=== PATIENT | male | born 1970 | race Two or more races ===

== ENCOUNTER 2025-09-01 18:45 | Emergency (ER) | payer OTHER ==
[~2025-09-01] VITALS: Ht 188 cm; Wt 109.8 kg
[2025-09-01] MEDS ORDERED: AVAPRO300 MG (19:18)
[2025-09-01] MEDS ORDERED: CARVEDILOL25 MG (19:19)
[2025-09-01] MEDS ORDERED: KETOROLAC TROMETHAMINE 30 MG VIAL IM STA (19:33)
[2025-09-01] MEDS ORDERED: DEXAMETHASONE SODIUM PHOSPHATE 4 MG/ML VIAL IM STA (19:33)
[2025-09-01] MEDS ORDERED: ORPHENADRINE CITRATE 30 MG/ML AMPUL IM STA (19:34)
[2025-09-01] MEDS ORDERED: KETOROLAC TROMETHAMINE 30 MG VIAL ONE (19:40)
[2025-09-01] MEDS ORDERED: DEXAMETHASONE SODIUM PHOSPHATE 4 MG/ML VIAL ONE (19:41)
[2025-09-01] MEDS ORDERED: ORPHENADRINE CITRATE 30 MG/ML AMPUL ONE (19:41)
[2025-09-01] MEDS ORDERED: MEDROLPACK PO (20:36)
[2025-09-01] MEDS ORDERED: DICLOFENAC POTA50 MG PO (20:36)
[2025-09-01] MEDS ORDERED: METAXALONE640 MG PO (20:36)
== END 2025-09-01 21:14 | disposition home or self-care (01) ==
LOC: ER 18:46
DX: M79.652 Pain in left thigh (principal); M25.562 Pain in left knee; M25.572 Pain in left ankle and joints of left foot; M77.32 Calcaneal spur, left foot; I10 Essential (primary) hypertension; Z87.09 Personal history of other diseases of the respiratory system
CPT/HCPCS: 73552; 73560; 73610; 73630; 96372; 99284; J1100; J1885; J2360